=== PATIENT | male | born 1945 | race Caucasian/White ===

== ENCOUNTER 2018-06-08 14:53 | Observation (INO) | payer MEDICARE, BC ==
[2018-06-05 12:12] LABS: BASOPHILS # (AUTO) 0.2 X10'3 (0-0.2); BASOPHILS % (AUTO) 1.7 % (0-1); EOSINOPHILS # (AUTO) 0.7 X10'3 (0-0.9); EOSINOPHILS % (AUTO) 7.2 % (0-6); HEMATOCRIT 43.8 % (42.0-52.0); HEMOGLOBIN 14.4 g/dl (14.0-17.9); LYMPHOCYTES # (AUTO) 1.3 X10'3 (1.1-4.8); LYMPHOCYTES % (AUTO) 14.1 % (21-51); MEAN CORPUSCULAR HGB CONC 32.8 % (33.0-36.5); MEAN CORPUSCULAR VOLUME 82.2 FL (78-98); MEAN PLATELET VOLUME 8.8 FL (7.4-10.4); MONOCYTES # (AUTO) 0.7 X10'3 (0-0.9); MONOCYTES % (AUTO) 7.5 % (2-12); NEUTROPHILS # (AUTO) 6.4 X10'3 (1.8-7.7); NEUTROPHILS % (AUTO) 69.5 % (42-75); PLATELET COUNT 257 X10'3 (140-440); RED BLOOD COUNT 5.33 X10'6 (4.70-6.10); RED CELL DISTRIBUTION WIDTH 16.5 % (11.5-14.5); WHITE BLOOD COUNT 9.2 X10'3 (4.5-11.0)
[2018-06-05 12:26] LABS: PARTIAL THROMBOPLASTIN TIME 27 SECONDS (22-32); PROTHROMBIN TIME 10.5 SECONDS (9.0-12.0)
[2018-06-05 12:27] LABS: ALBUMIN 3.7 G/DL (3.4-5.0); ANION GAP 12 (8-16); BLOOD UREA NITROGEN 18 MG/DL (7-18); BUN/CREATININE RATIO 14.9 (5.4-32.0); CHLORIDE 103 MMOL/L (99-107); CREATININE 1.21 MG/DL (0.60-1.10); GLUCOSE 110 MG/DL (70-104); POTASSIUM 4.8 MMOL/L (3.5-5.1); SODIUM 141 MMOL/L (135-145); TOTAL CARBON DIOXIDE 26.3 MMOL/L (24-32); eGFR 59 ML/MIN
[~2018-06-08] VITALS: Ht 172.7 cm; Wt 78.7 kg
[2018-06-08] VITALS (8 sets, daily range): BP systolic 101–159; BP diastolic 56–96
[2018-06-08] MEDS ORDERED: diphenhydrAMINE 25mg capsule PO PRN (15:20)
[2018-06-08] MEDS ORDERED: LORazepam 0.5 MG tablet PO PRN (15:20)
[2018-06-08] MEDS ORDERED: normal saline 1000ml 1,000 ML IV SCH (15:20)
[2018-06-08] MEDS ORDERED: GLIM4TAB79 PO (15:24)
[2018-06-08] MEDS ORDERED: IRBE1TAB33 PO (15:24)
[2018-06-08] MEDS ORDERED: ASPI-611 PO (15:24)
[2018-06-08] MEDS ORDERED: EXEN2PEN (15:24)
[2018-06-08] MEDS ORDERED: ATOR40TA PO (15:24)
[2018-06-08] MEDS ORDERED: METO25TA6 PO (15:24)
[2018-06-08] MEDS ORDERED: PANT40TA4 PO (15:24)
[2018-06-08] MEDS ORDERED: METF500T PO (15:24)
[2018-06-08] MEDS ORDERED: AMLO10TA PO (15:24)
[2018-06-08] MEDS ORDERED: CANA300T PO (15:24)
[2018-06-08] MEDS ORDERED: SERT50TA PO (15:24)
[2018-06-08] MEDS ORDERED: heparin 1,000 UNITS/NS 500ml 500 ML ONE (19:00)
[2018-06-08] MEDS ORDERED: LIDOcaine 1% (10mg/ml)w/preservative injection 20ml MDV ONE (19:00)
[2018-06-08] MEDS ORDERED: iohexol 350MG/ML 100ml bottle IV ONE (19:00)
[2018-06-08] MEDS ORDERED: fentaNYL/PF 50MCG/1 ML 2ML syringe ONE (19:02)
[2018-06-08] MEDS ORDERED: midazolam 2 mg/2 ml injection ONE (19:02)
--- NOTE | 2018-06-08 19:10 | NUR ---
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
[2018-06-08] MEDS ORDERED: HYDROcodone/acetaminophen 5mg/325mg tablet PO PRN (19:45)
[2018-06-08] MEDS ORDERED: OXAZEpam 15mg capsule PO PRN (19:45)
[2018-06-08] MEDS ORDERED: proCHLORperazine 10 MG/2 ml inj IV PRN (19:45)
[2018-06-08] MEDS ORDERED: ondansetron/PF 4mg/2ml inj IV PRN (19:45)
[2018-06-08] MEDS ORDERED: HYDROcodone/acetaminophen 10/325mg tab PO PRN (19:45)
--- NOTE | 2018-06-08 21:54 | NUR ---
Pt discharged home in care of his . Site appears stable with no s/s of bleeding. Patient alert and oriented with no apparent signs of distress. D/C instructions reviewed with patient and his . All questions answered.
== END 2018-06-08 21:56 | disposition home or self-care (01) ==
LOC: SSTAY O 14:53 → MED 3N 20:20
PROVIDERS: ADMIT Internal Medicine Interventional Cardiology; ATTEND Internal Medicine Interventional Cardiology
DX: I25.119 Atherosclerotic heart disease of native coronary artery with unspecified angina pectoris (principal); I10 Essential (primary) hypertension; E11.9 Type 2 diabetes mellitus without complications; R94.30 Abnormal result of cardiovascular function study, unspecified; E78.00 Pure hypercholesterolemia, unspecified
CPT/HCPCS: 36415; 80048; 82948; 85025; 85610; 85730; 93005; 93459; A6257; G0378; J1644; J2001; J2250; J3010; J7030; Q0163; Q9967; 99152; A4620; C1760; C1769

== ENCOUNTER 2018-07-06 05:24 | Inpatient (IN) | payer MEDICARE, BC ==
[2018-07-03 14:07] LABS: BASOPHILS # (AUTO) 0.1 X10'3 (0-0.2); BASOPHILS % (AUTO) 0.9 % (0-1); EOSINOPHILS # (AUTO) 0.9 X10'3 (0-0.9); EOSINOPHILS % (AUTO) 8.1 % (0-6); LYMPHOCYTES # (AUTO) 1.2 X10'3 (1.1-4.8); LYMPHOCYTES % (AUTO) 11.6 % (21-51); MEAN CORPUSCULAR HEMOGLOBIN 25.9 PG (27.0-31.0); MEAN PLATELET VOLUME 8.7 FL (7.4-10.4); MONOCYTES # (AUTO) 0.7 X10'3 (0-0.9); MONOCYTES % (AUTO) 6.6 % (2-12); NEUTROPHILS # (AUTO) 7.7 X10'3 (1.8-7.7); NEUTROPHILS % (AUTO) 72.8 % (42-75); PRE OP HEMOGLOBIN 14.1 g/dL (14.0-17.9); PRE OP PLATELET COUNT 307 X10'3 (140-440); RED BLOOD COUNT 5.44 X10'6 (4.70-6.10)
[2018-07-03 14:15] LABS: HEMOGLOBIN A1C 6.1 % (4.5-6.2)
[2018-07-03 14:17] LABS: CLARITY,URINE CLEAR (Clear); COLOR,URINE YELLOW (Yellow); GLUCOSE, URINE >=1000 mg/dl (Neg); KETONES,URINE TRACE mg/dl (Neg); LEUKOCYTE ESTERASE ,URINE NEGATIVE (Neg); NITRITES, URINE NEGATIVE (Neg); OCCULT BLOOD,URINE NEGATIVE (Neg); PH,URINE 5.5 (4.8-8.0); PROTEIN,URINE NEGATIVE (Neg); UROBILINOGEN,URINE 0.2 E.U/dL (0.2-1.0)
[2018-07-03 14:21] LABS: UA COLLECTION TYPE NON-SPECIFIED
[2018-07-03 14:23] LABS: BACTERIA,URINE NONE SEEN /HPF (Neg); MUCUS STRANDS NONE SEEN /LPF (Neg); RBC,URINE NONE SEEN /HPF (0-2); SQUAMOUS EPITHELIAL CELL,UR NONE SEEN /LPF (FEW); WBC,URINE NONE SEEN /HPF (0-4)
[2018-07-03 14:23] LABS: ALBUMIN 3.8 G/DL (3.4-5.0); ALBUMIN/GLOBULIN RATIO 1.4 (1.1-1.5); ALKALINE PHOSPHATASE 50 IU/L (46-116); BLOOD UREA NITROGEN 24 MG/DL (7-18); BUN/CREATININE RATIO 16.7 (5.4-32.0); CALCIUM 9.1 MG/DL (8.5-10.1); CHLORIDE 103 MMOL/L (99-107); CREATININE 1.44 MG/DL (0.60-1.10); PRE OP ALT 26 U/L (30-65); PRE OP ANION GAP 11 (8-16); PRE OP AST 15 U/L (10-37); PRE OP BILIRUB, TOTAL 0.7 MG/DL (0.0-1.0); PRE OP GLUCOSE 137 MG/DL (70-104); PRE OP POTASSIUM 4.5 MMOL/L (3.4-5.1); PRE OP SODIUM 140 MMOL/L (135-145); TOTAL CARBON DIOXIDE 25.8 MMOL/L (24-32); TOTAL PROTEIN 6.6 G/DL (6.4-8.2); eGFR 48 ML/MIN
[2018-07-03 14:26] LABS: PRE OP INR 1.1 INR; PRE OP PROTIME 10.9 SECONDS (9.0-12.0)
[~2018-07-06] VITALS: Ht 172.7 cm; Wt 82.5 kg
[2018-07-06] VITALS (18 sets, daily range): BP systolic 96–140; BP diastolic 40–89
[~2018-07-06 05:24] MED LIST: AMLO10TA PO; ASPI-611 PO; ATOR40TA PO; CANA300T PO; CHOL10002 PO; CYAN-19 PO; EXEN2PEN IJ; GLIM4TAB79 PO; IRBE1TAB33 PO; LYSI500T40 PO; METF500T PO; METO25TA6 PO; PANT40TA4 PO; SERT50TA PO; ringers solution, lacted 1,000 ML IV SCH
[2018-07-06] MEDS ORDERED: diazepam 5mg tablet PO ONE (05:30)
[2018-07-06] MEDS: insulin regular, human 100 UNIT in normal saline 100ml IV soln 99 ML IV SCH ×2 (05:30)
[2018-07-06] MEDS ORDERED: DOCUMENT DATE & TIME OF BETA-BLOCKER PO ONE (05:30)
[2018-07-06] MEDS ORDERED: cefazolin/dext.iso 2gm/100ml 50 ML IV ONE (05:30)
[2018-07-06] MEDS ORDERED: metoprolol tartrate 12.5mg (1/2 tablet) PO ONE (05:30)
[2018-07-06] MEDS ORDERED: MIDAZolam 5mg/ml 2ml vial IV ONE ×2 (05:30→06:00)
[2018-07-06] MEDS ORDERED: vancomycin inj 1,500 MG in normal saline 300ml IV soln IV ONE (05:30)
[2018-07-06] MEDS ORDERED: famotidine 20mg tablet PO ONE (05:30)
[2018-07-06] MEDS ORDERED: mupirocin 2% nasal ointment 1gm UD NS ONE (05:30)
[2018-07-06] MEDS ORDERED: LIDOcaine 1% (10mg/ml) 2ml vial ONE (05:30)
[2018-07-06] MEDS ORDERED: ceFAZolin inj. 2,000 MG in dextrose 5%-water 50ml 50 ML IV ONE (06:24)
[2018-07-06] MEDS ORDERED: MIDAZolam 1mg/ml 10ml vial ONE (06:50)
[2018-07-06] MEDS ORDERED: SUFENTANIL CITRATE 50 MCG/ML 2ml ampule IV ONE (06:50)
[2018-07-06] MEDS ORDERED: LIDOcaine 2% (20mg/ml) 5ml vial ONE (06:54)
[2018-07-06] MEDS ORDERED: etomidate 2mg/ml inj. ONE (06:54)
[2018-07-06] MEDS ORDERED: MIDAZolam 5mg/ml 2ml vial IV PRN (07:00)
[2018-07-06] MEDS ORDERED: neostigmine methylsulfate 1 MG/ML 10ml vial ONE (07:10)
[2018-07-06] MEDS ORDERED: INSULIN R 100 UNIT in NS 100ML (1 UNIT/1 ML) BAG IV ONE (07:10)
[2018-07-06] MEDS ORDERED: heparin 1,000 units/ml 10ml inj ONE (07:10)
[2018-07-06] MEDS ORDERED: potassium Cl 2 mEq/ml inj IV ONE (07:10)
[2018-07-06] MEDS ORDERED: albumin 25% 50mL bottle IV ONE (07:10)
[2018-07-06] MEDS ORDERED: protamine sulf. 10mg/ml inj. IV ONE (07:10)
[2018-07-06] MEDS ORDERED: methylPREDNISolone sod succ 1000mg vial ONE (07:10)
[2018-07-06] MEDS ORDERED: nitroGLYCERIN in D5W 50mg/250ml (Tridil) infusion IV ONE (07:10)
[2018-07-06] MEDS ORDERED: heparin 10,000 units/1 ML INJ ONE ×2 (07:10→12:00)
[2018-07-06] MEDS ORDERED: DOPamine/D5W 400mg/250ml bag IV ONE (07:10)
[2018-07-06] MEDS ORDERED: magnesium sulf 1 GM/2 ML ONE (07:10)
[2018-07-06] MEDS ORDERED: isoflurane 100ml inhalation liquid IH ONE (07:10)
[2018-07-06] MEDS ORDERED: NORepinephrine bitartrate 8 MG in NS 250 ML BAG (32 mcg/ml) IV ONE (07:10)
[2018-07-06] MEDS ORDERED: sodium bicarbonate (8.4%) 1 mEq/ml syringe ONE (07:10)
[2018-07-06] MEDS ORDERED: LIDOcaine 2% (20 mg/ml) 5ml cardiac syringe ONE (07:10)
[2018-07-06] MEDS ORDERED: calcium chloride 100 MG/1 ML inj IV ONE (07:10)
[2018-07-06] MEDS ORDERED: aminocaproic acid 250 MG/1 ML inj. ONE (07:10)
[2018-07-06 07:55] LABS: ABG BASE EXCESS 1.3 mmol/L (-2.0-3.0); ABG HCO3 24.3 mmol/L (22.0-26.0); ABG OXYGEN SATURATION 99.5 % (95-98); ABG PCO2 33.4 mmHg (35.0-45.0); ABG PO2 478.2 mmHg (60.0-100.0); CL (ABG) 105 mmol/L (99-107); FCOHb 0.8 % (0.5-1.5); FMetHb 0.2 % (0.3-1.12); FO2Hb 98.5 % (94-100); GLUCOSE (ABG) 102 mg/dl (70-105); IONIZED CA (ABG) 1.16 mmol/L (1.03-1.32); NA (ABG) 138 mmol/L (135-145); TOTAL HEMOGLOBIN 12.4 G/dl (14.0-18.0)
[2018-07-06 08:01] LABS: ACT @ 1.70 U 390 SEC (193-297); ACT @ 2.84 U 561 SEC (260-420); BASELINE ACT 176 SEC (101-148); PATIENT WEIGHT 77.0k KG
[2018-07-06 09:15] LABS: ABG BASE EXCESS -2.3 mmol/L (-2.0-3.0); ABG HCO3 21.8 mmol/L (22.0-26.0); ABG PCO2 (T) 35.7 mmHg (35.0-48.0); ABG PH (T) 7.404 (7.350-7.450); ABG PO2 (T) 92.8 mmHg (83-108); FCOHb 1.3 % (0.5-1.5); FMetHb 0.3 % (0.3-1.12); FO2Hb 95.4 % (94-100); TOTAL HEMOGLOBIN 14.3 G/dl (14.0-18.0)
[2018-07-06 09:30] LABS: ABG BASE EXCESS -0.6 mmol/L (-2.0-3.0); ABG HCO3 23.8 mmol/L (22.0-26.0); ABG OXYGEN SATURATION 99.1 % (95-98); ABG PCO2 37.9 mmHg (35.0-45.0); ABG PH 7.415 (7.350-7.450); ABG PO2 379.9 mmHg (60.0-100.0); CL (ABG) 103 mmol/L (99-107); FCOHb 0.5 % (0.5-1.5); FMetHb 0.6 % (0.3-1.12); GLUCOSE (ABG) 193 mg/dl (70-105); IONIZED CA (ABG) 1.03 mmol/L (1.03-1.32); K (ABG) 4.6 mmol/L (3.3-5.1); NA (ABG) 133 mmol/L (135-145); TOTAL HEMOGLOBIN 8.8 G/dl (14.0-18.0)
[2018-07-06] MEDS ORDERED: LYSI100013 PO (09:59)
[2018-07-06 10:05] LABS: ABG BASE EXCESS VENOUS -1.8 mmol/L; ABG HCO3 VENOUS 23.7 mmol/L; ABG PO2 VENOUS 46.4 mmHg; CL (ABG) 104 mmol/L (99-107); FCOHb VENOUS 1.1 %; FHHb VENOUS 20.3 %; FMetHb VENOUS 0.6 %; GLUCOSE (ABG) 176 mg/dl (70-105); IONIZED CA (ABG) 1.07 mmol/L (1.03-1.32); K (ABG) 4.2 mmol/L (3.3-5.1); NA (ABG) 135 mmol/L (135-145); TOTAL HEMOGLOBIN 8.7 G/dl (14.0-18.0)
[2018-07-06] MEDS ORDERED: phenylephrine 10mg/ml inj. ONE (10:20)
[2018-07-06] MEDS ORDERED: rocuronium 10mg/ml inj IV ONE (10:20)
[2018-07-06 10:36] LABS: ABG BASE EXCESS 0.3 mmol/L (-2.0-3.0); ABG HCO3 25.4 mmol/L (22.0-26.0); ABG OXYGEN SATURATION 99.4 % (95-98); ABG PCO2 43.2 mmHg (35.0-45.0); ABG PH 7.387 (7.350-7.450); ABG PO2 499.7 mmHg (60.0-100.0); CL (ABG) 102 mmol/L (99-107); FCOHb 1.1 % (0.5-1.5); FMetHb 0.5 % (0.3-1.12); FO2Hb 97.8 % (94-100); GLUCOSE (ABG) 155 mg/dl (70-105); IONIZED CA (ABG) 1.35 mmol/L (1.03-1.32); K (ABG) 4.4 mmol/L (3.3-5.1); NA (ABG) 132 mmol/L (135-145); TOTAL HEMOGLOBIN 7.6 G/dl (14.0-18.0)
[2018-07-06] MEDS ORDERED: albuterol 2.5 MG/3 ML nebule NEB SCH (11:00)
[2018-07-06 11:05] LABS: ABG HCO3 VENOUS 25.2 mmol/L; ABG PCO2 VENOUS 43.5 mmHg; ABG PO2 VENOUS 50.4 mmHg; CL (ABG) 103 mmol/L (99-107); FCOHb VENOUS 1.7 %; FHHb VENOUS 15.2 %; FMetHb VENOUS 0.5 %; FO2Hb VENOUS 82.6 %; GLUCOSE (ABG) 140 mg/dl (70-105); IONIZED CA (ABG) 1.25 mmol/L (1.03-1.32); NA (ABG) 136 mmol/L (135-145); TOTAL HEMOGLOBIN 8.4 G/dl (14.0-18.0)
[2018-07-06] MEDS ORDERED: sodium chloride 0.45% 1,000 ML IV SCH (11:41)
[2018-07-06] MEDS ORDERED: nitroGLYCERIN-Tridil 50MG/D5W 250 ML IV PRN (11:41)
[2018-07-06] MEDS ORDERED: NORepinephrine 8mg/ 250ml NS 250 ML IV PRN (11:41)
[2018-07-06] MEDS ORDERED: DOPamine 400mg/D5W 250ml 250 ML IV PRN (11:41)
[2018-07-06] MEDS ORDERED: niCARDipine-NS 40mg/200ml IVPB 200 ML IV PRN (11:41)
[2018-07-06] MEDS ORDERED: insulin regular, human inj. 100 UNITS in normal saline 100ml IV soln 100 ML IV SCH ×2 (11:45)
[2018-07-06] MEDS ORDERED: normal saline 250ml IV soln 250 ML IV PRN (11:45)
[2018-07-06] MEDS ORDERED: potassium Cl 20mEq/100mL bag 100 ML IV PRN ×2 (11:45)
[2018-07-06] MEDS ORDERED: dextrose 50%-water 50ml dispensing syringe IV PRN (11:45)
[2018-07-06] MEDS ORDERED: ondansetron/PF 4mg/2ml inj IV PRN (11:45)
[2018-07-06] MEDS ORDERED: sodium phosphate inj. 15 MMOL in dextrose 5%-water 150 ML IV PRN (11:45)
[2018-07-06] MEDS ORDERED: metoclopramide 5 mg/ml inj IV PRN (11:45)
[2018-07-06] MEDS ORDERED: sodium phosphate inj. 30 MMOL in dextrose 5%-water 250 ML IV PRN (11:45)
[2018-07-06] MEDS ORDERED: magnesium 2GM in 50ml NS 50 ML IV PRN (11:45)
[2018-07-06] MEDS ORDERED: Neutra Phos packet PO PRN (11:45)
[2018-07-06] MEDS ORDERED: magnesium hydroxide 30ml (MOM) UD suspension PO PRN (11:45)
[2018-07-06] MEDS ORDERED: acetaminophen 325mg tablet PO PRN (11:45)
[2018-07-06] MEDS ORDERED: pantoprazole 40 MG vial IV ONE (11:45)
[2018-07-06] MEDS ORDERED: magnesium 4gm in 100ml NS 100 ML IV PRN (11:45)
[2018-07-06] MEDS ORDERED: albumin (Human) 5% 250ml 250 ML IV PRN (11:45)
[2018-07-06 11:51] LABS: ABG BASE EXCESS -1.9 mmol/L (-2.0-3.0); ABG HCO3 23.4 mmol/L (22.0-26.0); ABG OXYGEN SATURATION 97.6 % (95-98); ABG PCO2 (T) 42.2 mmHg (35.0-48.0); ABG PH (T) 7.362 (7.350-7.450); ABG PO2 (T) 120.3 mmHg (83-108); FCOHb 0.3 % (0.5-1.5); FMetHb 0.2 % (0.3-1.12); FO2Hb 97.1 % (94-100); PEEP 5 cm H2O; RESPIRATORY RATE 12 b/min; TIDAL VOLUME 500 mL; TOTAL HEMOGLOBIN 10.6 G/dl (14.0-18.0)
[2018-07-06] MEDS ORDERED: papaverine 30 mg/ml 2ml inj. ONE (12:00)
[2018-07-06] MEDS: morphine 4 MG/ML inj SYRINge IV PRN ×3 (12:03→20:18)
[2018-07-06 12:13] LABS: BASOPHILS # (AUTO) 0.1 X10'3 (0-0.2); BASOPHILS % (AUTO) 0.8 % (0-1); EOSINOPHILS # (AUTO) 0.4 X10'3 (0-0.9); EOSINOPHILS % (AUTO) 4.9 % (0-6); HEMATOCRIT 31.2 % (42.0-52.0); HEMOGLOBIN 10.3 g/dl (14.0-17.9); LYMPHOCYTES # (AUTO) 0.6 X10'3 (1.1-4.8); LYMPHOCYTES % (AUTO) 7.8 % (21-51); MEAN CORPUSCULAR HEMOGLOBIN 26.6 PG (27.0-31.0); MEAN CORPUSCULAR VOLUME 80.5 FL (78-98); MEAN PLATELET VOLUME 8.6 FL (7.4-10.4); MONOCYTES # (AUTO) 0.7 X10'3 (0-0.9); MONOCYTES % (AUTO) 9.1 % (2-12); NEUTROPHILS # (AUTO) 5.9 X10'3 (1.8-7.7); NEUTROPHILS % (AUTO) 77.4 % (42-75); PLATELET COUNT 159 X10'3 (140-440); RED BLOOD COUNT 3.88 X10'6 (4.70-6.10); RED CELL DISTRIBUTION WIDTH 14.8 % (11.5-14.5); WHITE BLOOD COUNT 7.8 X10'3 (4.5-11.0)
[2018-07-06 12:17] LABS: INR 1.2 INR; PARTIAL THROMBOPLASTIN TIME 27 SECONDS (22-32); PROTHROMBIN TIME 12.5 SECONDS (9.0-12.0)
[2018-07-06 12:20] LABS: ALANINE AMINOTRANSFERASE 25 U/L (12-78); ALBUMIN 3.1 G/DL (3.4-5.0); ALBUMIN/GLOBULIN RATIO 2.1 (1.1-1.5); ALKALINE PHOSPHATASE 29 IU/L (46-116); ANION GAP 6 (8-16); ASPARTATE AMINO TRANSFERASE 39 U/L (10-37); BILIRUBIN,TOTAL 0.7 MG/DL (0.1-1.0); BLOOD UREA NITROGEN 16 MG/DL (7-18); BUN/CREATININE RATIO 13.7 (5.4-32.0); CALCIUM 8.4 MG/DL (8.5-10.1); CHLORIDE 107 MMOL/L (99-107); CREATININE 1.17 MG/DL (0.60-1.10); GLUCOSE 110 MG/DL (70-104); MAGNESIUM 3.2 MG/DL (1.5-2.4); POTASSIUM 3.7 MMOL/L (3.5-5.1); SODIUM 141 MMOL/L (135-145); TOTAL CARBON DIOXIDE 27.6 MMOL/L (24-32); TOTAL PROTEIN 4.6 G/DL (6.4-8.2); eGFR 61 ML/MIN
[2018-07-06 12:23] LABS: PHOSPHORUS 1.2 MG/DL (2.3-4.5)
[2018-07-06] MEDS: potassium Cl 20mEq/100mL bag 100 ML IV PRN (12:57)
[2018-07-06] MEDS: insulin Lispro (HumaLOG) vial - multi-dose SQ SCH ×2 (13:00→18:30)
--- NOTE | 2018-07-06 13:09 | NUR ---
CABG consult: Pt s/p CABGx4 will need post-cardiac ed once clinically stable post-op. Addendum: 07/06/18 at [address] Amended: Links added.
[2018-07-06 13:45] LABS: ACTIVATED CLOTTING TIME 154 SEC (101-148)
[2018-07-06 15:41] LABS: ABG BASE EXCESS -6.5 mmol/L (-2.0-3.0); ABG HCO3 18.8 mmol/L (22.0-26.0); ABG PCO2 (T) 36.5 mmHg (35.0-48.0); ABG PH (T) 7.329 (7.350-7.450); ABG PO2 (T) 85.1 mmHg (83-108); FMetHb 0.3 % (0.3-1.12); FO2Hb 94.7 % (94-100)
[2018-07-06] MEDS: ceFAZolin 1GM/D5W- ADD-VANTAGE 50 ML IV SCH (16:17)
[2018-07-06 17:59] LABS: HEMATOCRIT 27.9 % (42.0-52.0); HEMOGLOBIN 9.3 g/dl (14.0-17.9); MONOCYTES # (AUTO) 0.4 X10'3 (0-0.9); MONOCYTES % (AUTO) 3.4 % (2-12); NEUTROPHILS # (AUTO) 11.3 X10'3 (1.8-7.7); RED CELL DISTRIBUTION WIDTH 14.9 % (11.5-14.5)
[2018-07-06 18:04] LABS: BASOPHILS % (AUTO) 0.3 % (0-1); EOSINOPHILS % (AUTO) 0.2 % (0-6); LYMPHOCYTES # (AUTO) 0.3 X10'3 (1.1-4.8); LYMPHOCYTES % (AUTO) 2.1 % (21-51); MEAN CORPUSCULAR HGB CONC 33.3 g/dL (33.0-36.5); MEAN CORPUSCULAR VOLUME 80.9 FL (78-98); MEAN PLATELET VOLUME 8.4 FL (7.4-10.4); PLATELET COUNT 180 X10'3 (140-440); RED BLOOD COUNT 3.46 X10'6 (4.70-6.10)
[2018-07-06 18:16] LABS: ALBUMIN 3.5 G/DL (3.4-5.0); ANION GAP 10 (8-16); BLOOD UREA NITROGEN 16 MG/DL (7-18); BUN/CREATININE RATIO 12.6 (5.4-32.0); CHLORIDE 109 MMOL/L (99-107); CREATININE 1.27 MG/DL (0.60-1.10); GLUCOSE 150 MG/DL (70-104); MAGNESIUM 2.4 MG/DL (1.5-2.4); PHOSPHORUS 3.7 MG/DL (2.3-4.5); POTASSIUM 3.7 MMOL/L (3.5-5.1); SODIUM 143 MMOL/L (135-145); eGFR 56 ML/MIN
--- NOTE | 2018-07-06 18:30 | NUR ---
Patient in room ICU 2038. I have received report from Inez MARIE and had the opportunity to ask questions and assume patient care.
[2018-07-06] MEDS: vancomycin/NS 1 GM ADD-VANTAGE 250 ML IV SCH (20:18)
[2018-07-06] MEDS: mupirocin 2% nasal ointment 1gm UD NS SCH (20:18)
[2018-07-06] MEDS: docusate sod 100mg capsule PO SCH (20:19)
[2018-07-06] MEDS: HYDROcodone/acetaminophen 10/325mg tab PO PRN (22:31)
[2018-07-07] VITALS (24 sets, daily range): BP systolic 101–142; BP diastolic 50–64
[2018-07-07] MEDS: ceFAZolin 1GM/D5W- ADD-VANTAGE 50 ML IV SCH ×3 (00:16→16:49)
[2018-07-07] MEDS: HYDROcodone/acetaminophen 10/325mg tab PO PRN ×3 (03:08→18:05)
[2018-07-07 03:42] LABS: BASOPHILS % (AUTO) 0.1 % (0-1); EOSINOPHILS % (AUTO) 0.1 % (0-6); HEMATOCRIT 27.6 % (42.0-52.0); HEMOGLOBIN 9.1 g/dl (14.0-17.9); LYMPHOCYTES # (AUTO) 0.3 X10'3 (1.1-4.8); LYMPHOCYTES % (AUTO) 2.4 % (21-51); MEAN CORPUSCULAR HEMOGLOBIN 26.7 PG (27.0-31.0); MEAN CORPUSCULAR HGB CONC 33.1 g/dL (33.0-36.5); MEAN CORPUSCULAR VOLUME 80.7 FL (78-98); MONOCYTES # (AUTO) 0.5 X10'3 (0-0.9); MONOCYTES % (AUTO) 3.5 % (2-12); NEUTROPHILS # (AUTO) 13.2 X10'3 (1.8-7.7); NEUTROPHILS % (AUTO) 93.9 % (42-75); PLATELET COUNT 168 X10'3 (140-440); RED BLOOD COUNT 3.42 X10'6 (4.70-6.10); RED CELL DISTRIBUTION WIDTH 15.1 % (11.5-14.5)
[2018-07-07 03:49] LABS: INR 1.1 INR; PARTIAL THROMBOPLASTIN TIME 29 SECONDS (22-32); PROTHROMBIN TIME 10.7 SECONDS (9.0-12.0)
[2018-07-07 03:59] LABS: ALANINE AMINOTRANSFERASE 26 U/L (12-78); ALBUMIN 3.4 G/DL (3.4-5.0); ALKALINE PHOSPHATASE 27 IU/L (46-116); ANION GAP 10 (8-16); ASPARTATE AMINO TRANSFERASE 27 U/L (10-37); BILIRUBIN,TOTAL 0.4 MG/DL (0.1-1.0); BLOOD UREA NITROGEN 15 MG/DL (7-18); BUN/CREATININE RATIO 14.4 (5.4-32.0); CALCIUM 7.9 MG/DL (8.5-10.1); CHLORIDE 110 MMOL/L (99-107); CREATININE 1.04 MG/DL (0.60-1.10); GLUCOSE 137 MG/DL (70-104); MAGNESIUM 2.2 MG/DL (1.5-2.4); PHOSPHORUS 5.1 MG/DL (2.3-4.5); POTASSIUM 3.9 MMOL/L (3.5-5.1); SODIUM 145 MMOL/L (135-145); TOTAL CARBON DIOXIDE 25.4 MMOL/L (24-32); TOTAL PROTEIN 5.1 G/DL (6.4-8.2); eGFR 70 ML/MIN
[2018-07-07] MEDS: potassium Cl 20mEq/100mL bag 100 ML IV PRN (04:19)
--- NOTE | 2018-07-07 04:45 | NUR ---
Nadir MARIE and I helped the pt dangle his feet at the bedside for approximately 4 mins, then had the pt stand for 4 mins and the pt tolerated it well, no complaints of dizziness
[2018-07-07] MEDS: insulin regular, human 100 UNIT in normal saline 100ml IV soln 99 ML IV SCH ×2 (04:51)
--- NOTE | 2018-07-07 06:30 | NUR ---
Problems reprioritized. Patient report given, questions answered & plan of care reviewed with Ricky MARIE.
--- NOTE | 2018-07-07 06:30 | NUR ---
Patient in room ICU 2038. I have received report and had the opportunity to ask questions and assume patient care.
[2018-07-07] MEDS: metoprolol tartrate 12.5mg (1/2 tablet) PO SCH ×2 (07:38→20:11)
[2018-07-07] MEDS: sertraline 50mg tablet PO SCH (07:38)
[2018-07-07] MEDS: aspirin 325mg tablet, delayed-release (Ecotrin) PO SCH (07:38)
[2018-07-07] MEDS: mupirocin 2% nasal ointment 1gm UD NS SCH ×2 (07:39→20:10)
[2018-07-07] MEDS: atorvastatin 10mg tablet PO SCH (07:39)
[2018-07-07] MEDS: docusate sod 100mg capsule PO SCH ×2 (07:39→20:10)
[2018-07-07] MEDS: vancomycin/NS 1 GM ADD-VANTAGE 250 ML IV SCH ×2 (08:19→20:10)
[2018-07-07] MEDS: morphine 4 MG/ML inj SYRINge IV PRN (08:20)
[2018-07-07] MEDS: insulin Lispro (HumaLOG) vial - multi-dose SQ SCH ×3 (09:03→18:00)
--- NOTE | 2018-07-07 10:30 | NUR ---
PA catheter discontinued, leg wraps removed.
--- NOTE | 2018-07-07 14:22 | NUR ---
Pt up with PT. Pt had some orthostatic hypotension, reported feeling "light headed."
--- NOTE | 2018-07-07 16:19 | NUR ---
Art line discontinued. Small 3 cm hematoma present, outlined with marker.
--- NOTE | 2018-07-07 18:22 | NUR ---
Problems reprioritized. Patient report given, questions answered & plan of care reviewed with FRANK Washington.
[2018-07-07] MEDS ORDERED: insulin Lispro (HumaLOG) vial - multi-dose SQ SCH (19:45)
[2018-07-07] MEDS ORDERED: dextrose ORAL solution 15 GM/59 ML bottle PO PRN ×2 (19:45)
[2018-07-07] MEDS ORDERED: glucagon, human recombinant 1mg kit SUBCUT PRN (19:45)
[2018-07-07] MEDS ORDERED: MESSAGE TO PHARMACY PO ONE (19:45)
[2018-07-07] MEDS ORDERED: dextrose 50%-water 50ml dispensing syringe IV PRN ×2 (19:45)
[2018-07-07] MEDS ORDERED: insulin glargine (Lantus) pen - multi-dose SQ SCH (21:00)
[2018-07-08] VITALS (20 sets, daily range): BP systolic 98–136; BP diastolic 51–77
[2018-07-08] MEDS: ceFAZolin 1GM/D5W- ADD-VANTAGE 50 ML IV SCH (00:09)
[2018-07-08] MEDS: HYDROcodone/acetaminophen 10/325mg tab PO PRN ×2 (01:44→08:24)
[2018-07-08 03:16] LABS: BASOPHILS # (AUTO) 0.1 X10'3 (0-0.2); BASOPHILS % (AUTO) 0.9 % (0-1); EOSINOPHILS % (AUTO) 0.2 % (0-6); HEMATOCRIT 25.7 % (42.0-52.0); HEMOGLOBIN 8.4 g/dl (14.0-17.9); LYMPHOCYTES # (AUTO) 0.6 X10'3 (1.1-4.8); LYMPHOCYTES % (AUTO) 5.7 % (21-51); MEAN CORPUSCULAR HEMOGLOBIN 26.2 PG (27.0-31.0); MEAN CORPUSCULAR HGB CONC 32.8 g/dL (33.0-36.5); MEAN CORPUSCULAR VOLUME 79.9 FL (78-98); MEAN PLATELET VOLUME 8.7 FL (7.4-10.4); MONOCYTES # (AUTO) 1.1 X10'3 (0-0.9); MONOCYTES % (AUTO) 9.5 % (2-12); NEUTROPHILS # (AUTO) 9.4 X10'3 (1.8-7.7); NEUTROPHILS % (AUTO) 83.7 % (42-75); PLATELET COUNT 121 X10'3 (140-440); RED BLOOD COUNT 3.21 X10'6 (4.70-6.10); RED CELL DISTRIBUTION WIDTH 16.3 % (11.5-14.5); WHITE BLOOD COUNT 11.2 X10'3 (4.5-11.0)
[2018-07-08 03:22] LABS: ALBUMIN 2.9 G/DL (3.4-5.0); ANION GAP 6 (8-16); BLOOD UREA NITROGEN 19 MG/DL (7-18); BUN/CREATININE RATIO 18.8 (5.4-32.0); CALCIUM 8.2 MG/DL (8.5-10.1); CHLORIDE 107 MMOL/L (99-107); CREATININE 1.01 MG/DL (0.60-1.10); GLUCOSE 194 MG/DL (70-104); PHOSPHORUS 3.1 MG/DL (2.3-4.5); POTASSIUM 4.4 MMOL/L (3.5-5.1); SODIUM 140 MMOL/L (135-145); eGFR 73 ML/MIN
[2018-07-08 03:39] LABS: ANISOCYTOSIS 1+; MICROCYTOSIS 1+; PLATELET ESTIMATE DECREASED
[2018-07-08] MEDS: insulin regular, human 100 UNIT in normal saline 100ml IV soln 99 ML IV SCH ×2 (03:44)
--- NOTE | 2018-07-08 06:30 | NUR ---
Patient in room ICU 2038. I have received report from stacy Moran RN and had the opportunity to ask questions and assume patient care.
[2018-07-08] MEDS: metoprolol tartrate 12.5mg (1/2 tablet) PO SCH ×2 (08:22→19:37)
[2018-07-08] MEDS: atorvastatin 10mg tablet PO SCH (08:22)
[2018-07-08] MEDS: docusate sod 100mg capsule PO SCH ×2 (08:23→19:36)
[2018-07-08] MEDS: pantoprazole 40mg Tablet.DR PO SCH (08:23)
[2018-07-08] MEDS: aspirin 325mg tablet, delayed-release (Ecotrin) PO SCH (08:23)
[2018-07-08] MEDS: mupirocin 2% nasal ointment 1gm UD NS SCH (08:25)
[2018-07-08] MEDS ORDERED: MESSAGE TO PHARMACY PO ONE (08:30)
[2018-07-08] MEDS ORDERED: glucagon, human recombinant 1mg kit SUBCUT PRN (08:30)
[2018-07-08] MEDS ORDERED: dextrose 50%-water 50ml dispensing syringe IV PRN ×2 (08:30)
[2018-07-08] MEDS ORDERED: dextrose ORAL solution 15 GM/59 ML bottle PO PRN ×2 (08:30)
[2018-07-08] MEDS ORDERED: potassium Cl 20 mEq SR tablet PO PRN ×2 (08:40)
[2018-07-08] MEDS ORDERED: magnesium 4gm in 100ml NS 100 ML IV PRN (08:40)
[2018-07-08] MEDS ORDERED: potassium Cl 40MEQ/NS 500ml 500 ML IV PRN ×2 (08:40)
[2018-07-08] MEDS ORDERED: magnesium Cl slow-release 64mg tablet PO PRN (08:40)
[2018-07-08] MEDS ORDERED: magnesium 2GM in 50ml NS 50 ML IV PRN (08:40)
[2018-07-08] MEDS ORDERED: furosemide 40mg/4ml inj IV ONE (09:00)
--- NOTE | 2018-07-08 09:00 | NUR ---
Chest tubes removed by julius MOTA discontinued by RN without problem. Up to chair for breakfast, slight light headness, BP stable. Using IS well, educated on same, reinforcement of proper way to get into and out of bed using sternal precautions, needs reminding
[2018-07-08] MEDS: sertraline 50mg tablet PO SCH (09:41)
[2018-07-08] MEDS: insulin Lispro (HumaLOG) vial - multi-dose SQ SCH ×3 (10:00→19:43)
--- NOTE | 2018-07-08 13:45 | NUR ---
Pt seen by [facility] for written/verbal high protein ed. [facility] reviewed high protein needs for wound healing, immune strength, high protein foods, and protein supplementation options. [facility] contact information provided in case of further questions. Declines additional proteins at this time. Addendum: 07/08/18 at [address] Amended: Links added.
[2018-07-08] MEDS: ketorolac tromethamine 15mg/ml inj. IV SCH ×2 (13:49→19:37)
--- NOTE | 2018-07-08 18:30 | NUR ---
Patient in room MED 316. I have received report from FRANK Riley, and had the opportunity to ask questions and assume patient care. Pt CVL pulled by FRANK Riley, and pt assisted to bedside chair for dinner.
[2018-07-08] MEDS: potassium Cl 20 mEq SR tablet PO SCH (19:36)
[2018-07-08] MEDS: magnesium Cl slow-release 64mg tablet PO SCH (19:36)
--- NOTE | 2018-07-08 19:55 | NUR ---
Pt transferred to [place] [address] via W/C by FRANK Lo, and ALEXANDRE Renteria. Pt transferred from W/C to bed with minimal assistance, tolerated activity well. FRANK Pastor, at bedside to admit pt, all questions answered. All belongings brought up with pt.
--- NOTE | 2018-07-08 20:00 | NUR ---
Received patient from ICU into room 316. Patient transferred from to bed w/ 2 person assist. Patient is alert and oriented, vitals stable. Oxygen via NC @3L sat 94%. Tele strip reviewed- pt is in normal sinus rhythm. BP stable. Patient is in bed and resting. call light in reach.
[2018-07-08] MEDS: insulin glargine (Lantus) pen - multi-dose SQ SCH (21:36)
[2018-07-09] MEDS: ketorolac tromethamine 15mg/ml inj. IV SCH ×4 (02:27→19:49)
[2018-07-09 03:00] VITALS: BP 120/62
[2018-07-09 06:00] VITALS: BP 121/97
[2018-07-09 06:13] LABS: BASOPHILS # (AUTO) 0.1 X10'3 (0-0.2); BASOPHILS % (AUTO) 1.1 % (0-1); EOSINOPHILS # (AUTO) 0.2 X10'3 (0-0.9); EOSINOPHILS % (AUTO) 2.8 % (0-6); HEMATOCRIT 25.2 % (42.0-52.0); HEMOGLOBIN 8.4 g/dl (14.0-17.9); LYMPHOCYTES # (AUTO) 0.7 X10'3 (1.1-4.8); LYMPHOCYTES % (AUTO) 8.8 % (21-51); MEAN CORPUSCULAR HEMOGLOBIN 26.3 PG (27.0-31.0); MEAN CORPUSCULAR HGB CONC 33.4 g/dL (33.0-36.5); MEAN CORPUSCULAR VOLUME 78.8 FL (78-98); MEAN PLATELET VOLUME 8.8 FL (7.4-10.4); MONOCYTES # (AUTO) 0.9 X10'3 (0-0.9); MONOCYTES % (AUTO) 11.2 % (2-12); NEUTROPHILS # (AUTO) 5.9 X10'3 (1.8-7.7); NEUTROPHILS % (AUTO) 76.1 % (42-75); PLATELET COUNT 111 X10'3 (140-440); RED BLOOD COUNT 3.19 X10'6 (4.70-6.10); RED CELL DISTRIBUTION WIDTH 16.1 % (11.5-14.5); WHITE BLOOD COUNT 7.8 X10'3 (4.5-11.0)
[2018-07-09 06:23] LABS: ALBUMIN 2.5 G/DL (3.4-5.0); ANION GAP 7 (8-16); BLOOD UREA NITROGEN 25 MG/DL (7-18); BUN/CREATININE RATIO 28.4 (5.4-32.0); CALCIUM 8.2 MG/DL (8.5-10.1); CHLORIDE 107 MMOL/L (99-107); CREATININE 0.88 MG/DL (0.60-1.10); GLUCOSE 136 MG/DL (70-104); MAGNESIUM 1.9 MG/DL (1.5-2.4); POTASSIUM 4.3 MMOL/L (3.5-5.1); SODIUM 142 MMOL/L (135-145); TOTAL CARBON DIOXIDE 28.4 MMOL/L (24-32); eGFR 85 ML/MIN
--- NOTE | 2018-07-09 06:59 | NUR ---
Patient in room MED 316. I have received report from FRANK COHEN and had the opportunity to ask questions and assume patient care.
--- NOTE | 2018-07-09 07:15 | NUR ---
DR. NELSON AT BEDSIDE
[2018-07-09] MEDS ORDERED: magnesium citrate 296ml oral solution PO ONE (07:40)
[2018-07-09] MEDS: pantoprazole 40mg Tablet.DR PO SCH (07:44)
[2018-07-09] MEDS: sertraline 50mg tablet PO SCH (07:44)
[2018-07-09] MEDS: magnesium Cl slow-release 64mg tablet PO SCH ×2 (07:45→19:48)
[2018-07-09] MEDS: docusate sod 100mg capsule PO SCH ×2 (07:45→19:48)
[2018-07-09] MEDS: metoprolol tartrate 12.5mg (1/2 tablet) PO SCH ×2 (07:45→19:48)
[2018-07-09] MEDS: aspirin 81mg tablet.DR PO SCH (07:45)
--- NOTE | 2018-07-09 07:45 | NUR ---
SVETLANA MAYER AND SVETLANA CRAWFORD AT BEDSIDE. SASHA INFORMED THAT MAG CITRATE CAN BE GIVEN PRN IF PATIENT DOESN'T HAVE A BM TODAY. PATIENT STATED, I'M GOING TO TRY TO WALK MORE BEFORE TAKING THE MAG CITRATE.
[2018-07-09] MEDS: atorvastatin 20mg tablet PO SCH (07:46)
[2018-07-09] MEDS: K and/or MAG REPLACEMENT MC SCH (07:51)
[2018-07-09] MEDS: potassium Cl 20 mEq SR tablet PO SCH ×2 (07:52→20:00)
[2018-07-09] MEDS: insulin Lispro (HumaLOG) vial - multi-dose SQ SCH ×3 (08:00→19:59)
[2018-07-09] MEDS ORDERED: magnesium citrate 296ml oral solution PO PRN (08:35)
--- NOTE | 2018-07-09 09:02 | NUR ---
PATIENT HAD + BM, MAG CITRATE NOT GIVEN. WILL CONTINUE TO MONITOR
[2018-07-09 11:00] VITALS: BP 109/58
[2018-07-09 18:00] VITALS: BP 126/61
--- NOTE | 2018-07-09 18:00 | NUR ---
Patient in room MED 316. I have received report from Dara MARIE and had the opportunity to ask questions and assume patient care.
--- NOTE | 2018-07-09 18:37 | NUR ---
Problems reprioritized. Patient report given, questions answered & plan of care reviewed with FRANK MADSEN.
[2018-07-09] MEDS: insulin glargine (Lantus) pen - multi-dose SQ SCH (22:58)
[2018-07-09 23:00] VITALS: BP 142/68
[2018-07-10] MEDS: ketorolac tromethamine 15mg/ml inj. IV SCH ×2 (01:26→07:49)
[2018-07-10 03:00] VITALS: BP 158/92
[2018-07-10 06:00] VITALS: BP 118/98
[2018-07-10 06:13] LABS: BASOPHILS # (AUTO) 0.1 X10'3 (0-0.2); BASOPHILS % (AUTO) 1.4 % (0-1); EOSINOPHILS # (AUTO) 0.9 X10'3 (0-0.9); EOSINOPHILS % (AUTO) 12.2 % (0-6); HEMATOCRIT 26.9 % (42.0-52.0); HEMOGLOBIN 9.1 g/dl (14.0-17.9); LYMPHOCYTES # (AUTO) 0.7 X10'3 (1.1-4.8); LYMPHOCYTES % (AUTO) 9.3 % (21-51); MEAN CORPUSCULAR HEMOGLOBIN 26.6 PG (27.0-31.0); MEAN CORPUSCULAR HGB CONC 33.8 g/dL (33.0-36.5); MEAN CORPUSCULAR VOLUME 78.6 FL (78-98); MEAN PLATELET VOLUME 8.7 FL (7.4-10.4); MONOCYTES # (AUTO) 0.6 X10'3 (0-0.9); MONOCYTES % (AUTO) 8.7 % (2-12); NEUTROPHILS % (AUTO) 68.4 % (42-75); PLATELET COUNT 126 X10'3 (140-440); RED BLOOD COUNT 3.42 X10'6 (4.70-6.10); RED CELL DISTRIBUTION WIDTH 15.9 % (11.5-14.5); WHITE BLOOD COUNT 7.4 X10'3 (4.5-11.0)
[2018-07-10 06:19] LABS: ALBUMIN 2.5 G/DL (3.4-5.0); ANION GAP 8 (8-16); BLOOD UREA NITROGEN 23 MG/DL (7-18); BUN/CREATININE RATIO 23.7 (5.4-32.0); CALCIUM 8.4 MG/DL (8.5-10.1); CHLORIDE 106 MMOL/L (99-107); CREATININE 0.97 MG/DL (0.60-1.10); GLUCOSE 150 MG/DL (70-104); MAGNESIUM 1.8 MG/DL (1.5-2.4); SODIUM 140 MMOL/L (135-145); TOTAL CARBON DIOXIDE 26.2 MMOL/L (24-32); eGFR 76 ML/MIN
[2018-07-10] MEDS: atorvastatin 20mg tablet PO SCH (07:45)
[2018-07-10] MEDS: pantoprazole 40mg Tablet.DR PO SCH (07:45)
[2018-07-10] MEDS: aspirin 81mg tablet.DR PO SCH (07:46)
[2018-07-10] MEDS: sertraline 50mg tablet PO SCH (07:46)
[2018-07-10] MEDS: magnesium Cl slow-release 64mg tablet PO SCH (07:46)
[2018-07-10 07:50] VITALS: BP_SYST 135
[2018-07-10] MEDS: metoprolol tartrate 12.5mg (1/2 tablet) PO SCH (07:50)
[2018-07-10] MEDS: potassium Cl 20 mEq SR tablet PO SCH (08:00)
[2018-07-10] MEDS: K and/or MAG REPLACEMENT MC SCH (08:00)
[2018-07-10] MEDS: docusate sod 100mg capsule PO SCH (08:01)
[2018-07-10] MEDS: insulin Lispro (HumaLOG) vial - multi-dose SQ SCH (08:51)
[2018-07-10] MEDS ORDERED: HYDR-3972 PO (08:51)
[2018-07-10] MEDS ORDERED: COL100C PO (08:51)
--- NOTE | 2018-07-10 12:15 | NUR ---
provided pt and family with discharge education including worsening symptoms, sternal precautions, post CABG care and follow up appointments. all questions answered. pt removed from cardiac monitoring, IV removed; cannula intact. pt wheeled down with all belongings.
== END 2018-07-10 12:15 | disposition home health service (06) | DRG 235 ==
LOC: PAS IN 05:24 → EDSTATUS 07:30 → ICU 2S 09:30 → MED 3N 07-08 20:09
PROVIDERS: ADMIT Thoracic Surgery (Cardiothoracic Vascular Surgery); ATTEND Thoracic Surgery (Cardiothoracic Vascular Surgery)
PROC: 02100Z9 Bypass Coronary Artery, One Artery from Left Internal Mammary, Open Approach (ICD-10-PCS; 2018-07-06)
PROC: 06BQ4ZZ Excision of Left Saphenous Vein, Percutaneous Endoscopic Approach (ICD-10-PCS; 2018-07-06)
PROC: 06BP4ZZ Excision of Right Saphenous Vein, Percutaneous Endoscopic Approach (ICD-10-PCS; 2018-07-06)
PROC: B246ZZ4 Ultrasonography of Right and Left Heart, Transesophageal (ICD-10-PCS; 2018-07-06)
PROC: 5A1221Z Performance of Cardiac Output, Continuous (ICD-10-PCS; 2018-07-06)
PROC: 021209W Bypass Coronary Artery, Three Arteries from Aorta with Autologous Venous Tissue, Open Approach (ICD-10-PCS; principal; 2018-07-06 07:10)
DX: I25.10 Atherosclerotic heart disease of native coronary artery without angina pectoris (principal); N17.0 Acute kidney failure with tubular necrosis; I10 Essential (primary) hypertension; E78.00 Pure hypercholesterolemia, unspecified; E11.9 Type 2 diabetes mellitus without complications; K21.9 Gastro-esophageal reflux disease without esophagitis; F32.9 Major depressive disorder, single episode, unspecified; M19.90 Unspecified osteoarthritis, unspecified site; Z96.652 Presence of left artificial knee joint; Z90.49 Acquired absence of other specified parts of digestive tract; Z82.49 Family history of ischemic heart disease and other diseases of the circulatory system; Z87.891 Personal history of nicotine dependence; Z79.899 Other long term (current) drug therapy
CPT/HCPCS: 0232T; 93312; 93325; 36415; 36600; 71045; 71046; 80048; 80053; 81001; 82330; 82435; 82803; 82947; 82948; 83036; 83735; 84100; 84132; 84295; 85018; 85025; 85347; 85384; 85610; 85730; 86885; 86900; 86901; 86920; 87070; 93005; 93880; 93970; 94002; 94010; 94668; 94760; 97116; 97162; 97530; A6255; A6258; A6402; A6446; A6449; A7000; A7048; C1751; C9113; G0378; J0690; J1265; J1644; J1815; J1885; J1940; J2001; J2150; J2250; J2270; J2370; J2405; J2440; J2710; J2720; J2930; J3370; J3475; J3480; J3490; J7030; J7060; J7120; P9045; P9047

== ENCOUNTER 2019-01-26 02:02 | Outpatient (CLI) | payer MEDICARE, BC ==
[~2019-01-26 02:02] MED LIST changes: +COL100C PO; -CYAN-19 PO; +CYAN-51 PO; +GLIM4TAB4 PO; -GLIM4TAB79 PO; +HYDR-3972 PO; -IRBE1TAB33 PO; +LYSI100013 PO; -ringers solution, lacted 1,000 ML IV SCH
== END 2019-01-26 23:59 | disposition home or self-care (01) ==
LOC: DIABETIC 02:02
PROVIDERS: ATTEND Specialist
DX: E11.65 Type 2 diabetes mellitus with hyperglycemia (principal); I10 Essential (primary) hypertension; Z79.84 Long term (current) use of oral hypoglycemic drugs; Z79.82 Long term (current) use of aspirin; Z79.899 Other long term (current) drug therapy
CPT/HCPCS: G0108

== ENCOUNTER 2019-07-27 04:10 | Outpatient (CLI) | payer MEDICARE, BC ==
[~2019-07-27 04:10] MED LIST changes: -GLIM4TAB4 PO; +GLIM4TAB7 PO
== END 2019-07-27 23:59 | disposition home or self-care (01) ==
LOC: DIABETIC 04:10
PROVIDERS: ATTEND Specialist
DX: E11.65 Type 2 diabetes mellitus with hyperglycemia (principal)
CPT/HCPCS: G0108